=== PATIENT | male | born 1955 | race Caucasian/White ===

== ENCOUNTER 2023-02-24 15:05 | Outpatient (CLI) | payer MEDICARE, BC | END 2023-02-24 15:06 | disposition home or self-care (01) | LOC: CSHRAD 15:05 | PROVIDERS: ATTEND Family Medicine | DX: M16.11 Unilateral primary osteoarthritis, right hip (principal) ==

== ENCOUNTER 2023-03-25 14:39 | Outpatient (CLI) | payer MEDICARE, BC | END 2023-03-25 14:40 | disposition home or self-care (01) | LOC: CSHMRI 14:39 | PROVIDERS: ATTEND Nurse Practitioner Family | DX: M25.551 Pain in right hip (principal); M84.359A Stress fracture, hip, unspecified, initial encounter for fracture; M47.22 Other spondylosis with radiculopathy, cervical region; Z98.890 Other specified postprocedural states | CPT/HCPCS: 72141 ==

== ENCOUNTER 2024-02-14 15:33 | Outpatient (CLI) | payer MEDICARE | END 2024-02-14 15:34 | disposition home or self-care (01) | LOC: CSHRAD 15:33 | PROVIDERS: ATTEND Family Medicine | DX: J18.9 Pneumonia, unspecified organism (principal) | CPT/HCPCS: 71046 ==

== ENCOUNTER 2025-02-06 08:34 | Outpatient (CLI) | payer MEDICARE ==
[2025-02-06 10:49] LABS: Estimated GFR - POC 73.0
[2025-02-06] MEDS ORDERED: Iopamidol 300 61% 100 ML VIAL FS ONE (12:40)
== END 2025-02-06 08:35 | disposition home or self-care (01) ==
LOC: CSHCT 08:34
PROVIDERS: ATTEND Family Medicine
DX: R10.9 Unspecified abdominal pain (principal)
CPT/HCPCS: 74177; 82565